=== PATIENT | female | born 1975 | race Caucasian/White ===

== ENCOUNTER 2018-10-14 05:42 | Day surgery (SDC) | payer OTHER, SELFPAY ==
[2018-10-09 17:09] LABS: Hemoglobin 12.7 g/dl (12.0-15.0); Mean Corp Hgb Conc 34.3 g/gl (32-36); Mean Corpuscular Hgb 29.9 pg (27.0-32.0); Mean Corpuscular Volume 87.1 fL (81-99); Mean Platelet Vol. 9.6 fl (6.2-12.0); Platelet Count 216 K/mm3 (150-450); RBC Distribution Width CV 12.8 % (11.6-14.6); Red Blood Count 4.25 M/mm3 (4.2-5.4); White Blood Count 3.8 K/mm3 (4.4-11.0)
[2018-10-09 17:16] LABS: Scan Indicated on CBC? Y/N NO
[2018-10-09 17:21] LABS: Partial Thromboplast Time 29.9 Seconds (24.1-36.2)
[2018-10-09 17:41] LABS: Internal QC Validated? YES +Cl - CLEAR BKGD; Pregnancy, Serum, hCG Quali. NEGATIVE Negative
[2018-10-09 17:43] LABS: Creatinine, Serum 0.79 mg/dL (0.55-1.02); EST Glomerular Filtration Rate 84 mL/min (>60); Est Glom Filt Rate - Afr Amer 102 mL/min (>60)
--- NOTE | 2018-10-13 21:17 | HP.PCM_ITS ---
History and Physical Date of Admission: 10/14/18 Surgical History and Physical Neva Potts, a 43 year old female 2 0 0 0 2, presents for RAVH/LSO/RS on October 14, 2018 at 7:30. -- Submucous Fibroids, Dysmenorrhea, LLQ Pain -- Cyclic LLQ pain which began months ago. Neva claims it started gradually and has been present 2 weeks before menses every months. It is located in the LLQ of the abdomen. Neva characterizes the quality throbbing.; Neva characterizes the quality aching. Severity is moderate and not improving; It is relieved by menses. Additional comments are: had vasectomy.; Additional comments are: u/s shows multiple submucous fibroids and fibroid which protrudes into left adnexa; normal left ovary. MEDICATIONS HISTORY: Patient is also takin. No Meds ALLERGIES: No Known Drug Allergies Infections - Chicken pox Illnesses - none Accidents - None Hospitalizations - Childbirth and see surgery Review of Systems: GENERAL - Denies fever, or chills SKIN - Denies skin changes EYES - Denies visual changes EARS - Denies difficulty hearing NOSE - Denies nasal congestion or bleeding MOUTH - Denies sore throat or difficulty swallowing NECK - Denies pain or swelling RESPIRATORY - Denies shortness of breath or wheezing CARDIOVASCULAR - Denies palpitations or chest pain GASTROINTESTINAL - Denies nausea, vomiting, diarrhea, constipation GENITOURINARY - Denies dysuria, frequency of urination, incontinence of urine MUSCULOSKELETAL - Denies joint or muscle pain NEUROLOGICAL - Denies localized numbness or weakness PSYCHIATRIC - Denies depression or anxiety ENDOCRINE - Denies heat or cold intolerance, weight loss or gain HEMATO-IMMUNOLOGIC - Denies excessive bleeding with cuts SOCIAL HISTORY: Alcohol Use - drinks occasionally Smoking - denies smoking Diet - balanced Diet Lifestyle - moderate stress lifestyle Exercise - regular Seat Belt Use - always Employer - [employer] Job Description - business office manager Illicit Drug Use - denies use of street drugs Sexual Activity - single sexual partner Hours Worked - 40 hours per week Spouse-Sig Other Name - Cal Bandar- boyfriend not FOB Children Name(s) - Andreas Control - Vasectomy FAMILY HISTORY: Non-contributory MENSTRUAL HISTORY: LMP Known?- Definite Amount/Duration - 2 days, Regularity - Regular, Frequency - monthly days, LMP - 09/26/18 PAST PREGNANCIES: Total Pregnancies - 2; Full Term Pregnancies - 2; Premature - 0; Abortions, Induced - 0; Abortions, Spontaneous - 0; Ectopics - 0; Multiple Births - 0; Living Children - 2 SURGICAL HISTORY: 1. Gallbladder removal 2015 PHYSICAL EXAM BP- 136/90 Sitting, Right arm, regular cuff Height- 63.0 inch CONSTITUTIONAL - NAD, well nourished, and well developed SKIN - No rash, lesions, or ulcers HEENT - Normocephalic, PERRLA, EOMI NECK - No nodes, no nuchal rigidity and thyroid normal size and texture LYMPH NODES - Palpation of lymph nodes in neck and groins within normal limits LUNGS - CTA x2 without wheezes, crackles or rales CARDIAC - Regular rate and rhythm without rubs, murmurs, or gallops BREAST - No dominant masses, no tenderness, no axillary adenopathy, no nipple discharge, no skin changes ABDOMEN - Without hepatosplenomegaly, distention, masses, rebound, or guarding; normal bowel sounds; no hernias EXTREMITIES - No edema or calf tenderness NEUROLOGICAL - Cranial nerves II-XII grossly intact PSYCHIATRIC - A and O to time, place, person, mood and affect DETAILED PELVIC EXAM External Genitial Vagina - non-tender without lesions Urethra/Urethral Meatus - non-tender Bladder - non-tender Vagina - vaginal golden are pink and moist without loss of rugae and no evidence of atropy Cervix - without cervical motion tenderness and has normal size and features without evident lesions Uterus - 5-6 cm in size, mobile and nontender Adnexa - clear without massess or tenderness ASSESSMENT/PLAN: 1. Abdominal Pain,LLQ, Dysmenorrhea and Submucous Leiomyoma Of Uterus Uncertain if pain due to fibroids protruding into left adnexa or undiagnosed endometriosis; dysmenorrhea/ cramping likely due to submucous fibroids. Discussed options for treatment including proceeding with RAVH/LSO/RS or Dx L/S with possible LSO/RS and pt desires the hysterectomy. Her pain is severe enough that she insists something must be done. Discussed RBAs and all questions answered.
[2018-10-14] VITALS (11 sets, daily range): BP systolic 98–134; BP diastolic 64–78; PULSE 66–85; RESP 16–18; TEMP 36.3–37.1; O2SAT 94–100; BMI 23.1; BMI 24.0
[2018-10-14 06:15] LABS: Internal QC Validated? YES +Cl - CLEAR BKGD; Pregnancy, Urine Negative Negative
--- NOTE | 2018-10-14 07:30 | HYST_PTH ---
PATIENT: MIO MORRIS LOC: [facility] [place] U#:[id number] AGE/SX: 43/F ROOM: RE10/14/[address]: Dr. Prabhakar Padgett MD : [id number] BED: DIS: 10/15/2018 SPEC #: [id number] RECD: 10/14/18 13:07 STATUS: BRIANA MARLO #: [id number] CECIL: 10/14/18 07:[address]: Prabhakar Padgett DEPT: SURGICAL PATHOLOGY RECD BY: Yousif Waldron ENTERED: 10/14/18 13:27 SP TYPE: HYSTERECT OTHR DR: Dr. Eddie Higgins MD Tissues: Uterus, NOS Procedures: Surgery Specimen Level V HEADER OPERATION: Robotic assisted vaginal hysterectomy, left salpingo-oophorectomy PRE-OP DIAGNOSIS: Submucous fibroids, left lower quadrant pain, menorrhagia TISSUE SUBMITTED: Uterus, cervix, bilateral fallopian tubes, left ovary MICROSCOPIC DIAGNOSIS Uterus, hysterectomy: Cervix - squamous metaplasia and minimal chronic inflammation. Endometrium - secretory endometrium. Myometrium - leiomyomas. Right fallopian tube - benign paratubal cysts. Left fallopian tube - benign paratubal cyst and focal endometriosis. Left ovary - follicular cyst, corpus luteal cysts and corpora albicantia. AM:heather 10/15/18 COMMENT Case has been reviewed in consultation with Dr. Jacobo who concurs with the above diagnosis. IDC:ZOLTAN MICROSCOPIC DESCRIPTION Slides are reviewed. GROSS DESCRIPTION Received in fixative is one container labeled with the patient's name and designated uterus. The specimen consists of a uterus with attached cervix, right and left fallopian tubes and left ovary. The uterus with cervix measures 11 x 8 x 6.5 cm and weighs 102 gm. The ectocervix is grossly unremarkable. The endocervical canal measures 3.3 cm in length and is grossly unremarkable. The elongated endometrial cavity measures 5 x 3 cm. The reddish-martinez, velvety endometrium measures up to 0.2 cm in thickness. The myometrium measures 2 cm in average thickness and is distorted by multiple rubbery nodules ranging in size from 0.5 to 5.8 cm in greatest dimension. The nodules are intramural and subserosal in location. The right fallopian tube measures 7 cm in length and 1 cm in greatest diameter. The soft tissue adjacent to the fallopian tube contains two smooth glistening cysts containing clear fluid. The cysts range in size from 1 to 1.3 cm in greatest dimension. The fimbriated end has a normal villous appearance. The left fallopian tube is similar in appearance measuring 6 cm in length and 1 cm in average diameter. A smooth glistening paratubal cyst is present measuring 3 cm and containing clear fluid. The smooth, glistening pink-martinez ovary measures 2.8 x 2 x 2 cm. Serial sections reveal small cysts ranging in size from 0.2 to 0.5 cm and containing clear fluid. Electric Wirer sections are submitted in 12 cassettes as follows: 1 - anterior cervix, 2 - posterior cervix, 3 & 4 - anterior uterine wall, 5 & 6 - posterior uterine wall, 7 - largest myometrial mass, 8 - smaller myometrial masses, 9 - right fallopian tube and paratubal cysts, 10 - left fallopian tube, 11 - left paratubal cyst, 12 - left ovary. / AM:heather 10/14/18 TC:5 CPT: 12377
--- NOTE | 2018-10-14 07:35 | PCM.OPRPT ---
Report of Operation Date of Procedure: 10/14/18 Pre-Operative Diagnosis: Submucous Fibroids, Left Lower Quadrant Pain, Menorrhagia Post-Operative Diagnosis: Submucous Fibroids, Left Lower Quadrant Pain, Menorrhagia, Dense Adhesions, Endometriosis Surgery/Procedure Performed:: Robotic Assisted Vaginal Hysterectomy, Left Salpingo-Oophrectomy, Right Salpingectomy, Lysis of Adhesions Description of Surgical Findings:: 10 cm fibroid uterus with dense adhesions of the uterus to the anterior abdominal wall, dense adhesions of the omentum to the anterior abdominal wall, severe endometriosis. Normal-appearing right ovary. solutions specialist: Favian Pedroza Type of Anesthesia:: General - Endotracheal Anesthesiologist: Rony Davenport Specimen's removed: Uterus, left tube and ovary, right tube Drains: Craig to straight drain Estimated Blood Loss (mL): Minimal Fluids Replaced: Crystalloid Description of Procedure: Surgeon: Prabhakar Padgett MD, FACOG Indication: This is a 43 year old patient who has been having problems with chronic left lower quadrant pain and menorrhagia. Ultrasound shows submucous fibroids present. Conservative measures have not been helpful. The patient has been counseled regarding the risks, benefits and alternatives of this procedure including the possibility of bleeding, infection, and injury to surrounding structures such as bowel bladder and all questions were answered. She understands that if BSO is needed that she will need to be on HRT for an indefinite period of time. Procedure: Pt taken to the operating room where after induction of general anesthesia the patient was prepped and draped in the usual sterile fashion and placed on a non-slip Huggy-u-vac device. Trendendelenburg test was satisfactory. Bladder was drained of urine with a Craig catheter which was left in place. Anterior cervix was grasped and cervix was dilated to about 3-4 mm. Uterus sounded to 9 cms. 0-Vicryl suture was placed at the 3:00 and 9:00 position of the cervix. A medium uterine manipulation device device was then placed in the uterus to allow uterine manipulation during the surgery and attention was turned to the laparoscopic portion of the procedure. Ropivocaine 0.5% was injected approximately 2-3 cm superior to the umbilicus and an 8 mm robotic camera port was introduced directly with intraperitoneal placement confirmed with insufflation. 8 mm robotic side ports were introduced under direct visualization approximately 11 cm lateral and 2 cm inferior to the umbilical port. A 5 mm left upper quadrant port was introduced and airseal insufflation with CO2 was started. The above findings were noted. Robot was docked without difficulty and attention turned to the robotic portion of the procedure. Approximately 30 cc of Ropivicaine was used. Adhesions of the omentum to the anterior abdominal wall were noted and taken down with cautery and sharp dissection. The uterus was densely adhered to the anterior abdominal wall and adhesions were taken down again with cautery and sharp dissection. The left infundibulocal ligament and right mesosalpinx were ligated with 35 singh bipolar coagulation to the level of the round ligament which were enveloped with dense adhesions. The posterior aspect of the cervix was identified and then opened for about 1 cm using 25 watt monopolar cautery identifying the uterine manipulating device which had been placed vaginally. Bladder flap was carefully developed using monopolar cautery and sharp dissection. Progressive bites were then ligated on each side of the cervix with 35 singh bipolar cautery to the uterine arteries. The anterior vaginal mucosa was then entered and cervix circumscribed with monopolar cautery. Uterus and attached left ovary and tubes were then removed through the vagina. Vaginal cuff was closed first with 0-Vicryl Dayna stitches placed at each angle followed by closure of the mid-cuff with 0-Monocryl V-lock suture in two layers. Pelvis was copiously irrigated with saline and the right and left ureters were noted to peristalse. Urine remained clear throughout the surgery. Robot was undocked and trocars were removed with as much gas as possible. Incisions were closed with 4-0 Monocryl subcuticular sutures and incisions covered with steri-strips. The patient tolerated the procedure well and was taken to the recovery room in satisfactory condition. Sponge, instruments and needle counts were all correct. There were no apparent complications of the surgery. Cefotan 2 gms IV was given prior to the procedure. Estimated Blood Loss: Minimal Specimen to Pathology: Uterus and bilateral tubes and left ovary Grafts/Implants Used: None - Complications None - Admit VTE Documentation VTE Present on Admission: Yes VTE Mechan Device Prophylaxis: Knee High GREGG Hose VTE Pharm Prophylaxis ordered?: Yes
--- NOTE | 2018-10-14 07:40 | DCINST_ITS ---
Discharge Diet: No Restrictions Discharge Activity: Return to Normal Activity, May Not Drive - while taking narcotic pain medications., May Shower May resume sexual activity in: 6-8 weeks Call your doctor if your incision/area has: Continuous Slow Oozing, Sudden Increased Bleeding, Increased Pain/ Swelling, Increased Redness, Foul Smelling Discharge Call your doctor if you observe: Fever of 101 or Higher, Inability to urinate, Inability to have a bowel movement, Using more than one pad per hour Allergies/Adverse Reactions: Allergies No Known Allergies Allergy (Verified 10/07/18 13:11) Medications to take at Discharge Docusate Sodium [Colace] 100 mg PO BID PRN PRN #60 cap 10/14/18 Oxycodone [Oxyir] 5 mg PO Q6H PRN PRN 7 Days #20 tab 10/14/18 The following prescriptions were given: Oxycodone [Oxyir] 5 mg PO Q6H PRN PRN 7 Days #20 tab PRN Reason: Severe Pain () Docusate Sodium [Colace] 100 mg PO BID PRN PRN #60 cap PRN Reason: Constipation Primary Care Physician: Eddie Higgins MD [Primary Care Provider] - Test Results: Test results from this visit will be discussed in further detail at your follow- up appointment, if applicable. Please Follow Up With: Prabhakar Padgett MD When: 2 to 3 weeks
[2018-10-14] MEDS: Ropivacaine 0.5% 30 ML Vial (08:30)
[2018-10-14] MEDS: oxyCODONE 5 MG Tablet PO (12:52)
[2018-10-14] MEDS: Dextrose 5%-Lactated Ringers 1,000 ML 150 ML IV (12:54)
[2018-10-14] MEDS: Ketorolac 30 MG/ML Syringe IV ×2 (16:20→20:41)
[2018-10-14] MEDS: Enoxaparin 30 MG/0.3 ML Syringe SC (16:22)
[2018-10-14] MEDS: 0.9% NaCl Peripheral Flush Adult/Peds IV (20:41)
[2018-10-15 04:15] VITALS: BP 109/55; PULSE 74; RESP 16; TEMP 37; O2SAT 97
[2018-10-15] MEDS: Ketorolac 10 MG Tablet PO ×2 (04:15→09:30)
[2018-10-15 06:48] LABS: Hematocrit 28.7 % (37-47); Mean Corp Hgb Conc 34.8 g/gl (32-36); Mean Corpuscular Hgb 30.3 pg (27.0-32.0); Mean Platelet Vol. 10.5 fl (6.2-12.0); Platelet Count 195 K/mm3 (150-450); RBC Distribution Width CV 12.6 % (11.6-14.6); RBC Distribution Width SD 38.2 fl (35.1-43.9); White Blood Count 9.8 K/mm3 (4.4-11.0)
[2018-10-15 06:49] LABS: Scan Indicated on CBC? Y/N NO
[2018-10-15 07:14] LABS: Creatinine, Serum 0.73 mg/dL (0.55-1.02); EST Glomerular Filtration Rate 93 mL/min (>60); Est Glom Filt Rate - Afr Amer 112 mL/min (>60); Estimated Creatinine Clearance 83.05 ml/min
[2018-10-15 07:46] VITALS: O2SAT 98
--- NOTE | 2018-10-15 08:11 | PCM.PN.OB ---
Subjective: Patient without complaints. Pain well controlled. Left lower quadrant pain noted prior to surgery is gone. Able to void on own. No vaginal bleeding. - Physical Exam Vital Signs Temp Pulse Resp BP Pulse Ox 98.6 F 74 16 109/55 L 98 10/15/18 04:15 10/15/18 04:15 10/15/18 04:15 10/15/18 04:15 10/15/18 07:46 Oxygen Delivery Method Room Air Weight: 135 lb 9.6 oz Body Mass Index (BMI) 24.0 Intake and Output for Last 24 Hours 10/13/18 10/14/18 10/15/18 23:59 23:59 23:59 Intake Total 3920 / 3920 500 / 500 Output Total 1970 / 2370 900 / 900 Balance 1950 / 1550 -400 / -400 Laboratory Tests Past 24 Hrs 10/15/18 10/15/18 06:26 06:26 WBC 9.8 RBC 3.30 L Hgb 10.0 L Hct 28.7 L MCV 87.0 MCH 30.3 MCHC 34.8 RDW 12.6 RDW Differential 38.2 Plt Count 195 MPV 10.5 Creatinine 0.73 Estim Creat Clear Calc 83.05 Est GFR (MDRD) Af Amer 112 Est GFR (MDRD) Non-Af 93 Wounds are clean, dry, intact. Good urine output. Hemoglobin and creatinine okay. Medical Necessity - Tobacco Use Smoking Status: Former smoker Assessment/Plan All Active Problems (Last Reviewed 08/23/18 @ 15:11 by Sandy Morton) Sinusitis, acute (Resolved) Doing well postoperative day #1 status post robotic assisted vaginal hysterectomy, left salpingo-oophorectomy, right salpingectomy. Will release to home with routine instructions.
[2018-10-15 09:46] VITALS: BP 104/67; PULSE 72; RESP 14; TEMP 36.8; O2SAT 97
== END 2018-10-15 09:50 | disposition home or self-care (01) ==
LOC: SDC 05:47 → AC 05:47 → MS3 10-15 10:16
PROVIDERS: Anesthesiology; Family Provider Family Medicine; PCP Family Medicine; Referring Provider Obstetrics & Gynecology; Visit Provider Obstetrics & Gynecology
PROC: 0UT94ZZ Resection of Uterus, Percutaneous Endoscopic Approach (ICD-10-PCS; CPT 49329; principal; 2018-10-14 07:10)
DX: D25.0 Submucous leiomyoma of uterus (principal); N87.9 Dysplasia of cervix uteri, unspecified; N72 Inflammatory disease of cervix uteri; N83.8 Other noninflammatory disorders of ovary, fallopian tube and broad ligament; N80.2 Endometriosis of fallopian tube; N83.02 Follicular cyst of left ovary; N83.292 Other ovarian cyst, left side; N83.12 Corpus luteum cyst of left ovary; Z87.891 Personal history of nicotine dependence
CPT/HCPCS: 00840; 49329; 58552; 36415; 81025; 82565; 84703; 85027; 85610; 85730; 86850; 86900; 88307; J7120; A4216; J2405

== ENCOUNTER 2019-06-19 18:54 | Emergency (ER) | payer BC, SELFPAY ==
[2018-10-14 12:39] VITALS: BMI 24.0
[2019-06-19 18:55] VITALS: BP 135/99; PULSE 101; RESP 16; TEMP 37.2; O2SAT 99; BMI 25.9
--- NOTE | 2019-06-19 19:06 | CT_ITS ---
STUDY: CT BRAIN WITHOUT CONTRAST REASON FOR EXAM: Female, 44 years old. 2 day headache RADIATION DOSAGE (If Supplied By Facility): CTDIvol = ( 44.99 ) mGy, DLP = ( 728.62 ) mGycm TECHNIQUE: Transaxial CT imaging of the brain was performed without administration of intravenous contrast material. Individualized dose optimization techniques were used for this CT. COMPARISON: None. FINDINGS: Normal soft tissue structures. Normal calvarium. No hydrocephalus or midline shift is seen. Normal size ventricles and extra-axial spaces for the patient''s age. Normal white matter tracts of the cerebral hemispheres. Normal basal ganglia and thalami. Normal brainstem. Normal cerebellum. There is no intracranial hemorrhage. There are no findings of an acute ischemic infarction. Normal visualized paranasal sinuses. CT/Brain/Head without Contrast IMPRESSION: No demonstrated acute or significant intracranial process. Electronically Signed: Garry Gamez MD at 20:06 EST , Service support ,
--- NOTE | 2019-06-19 19:07 | ED.VIS.GEN ---
History of Present Illness Chief Complaint: Headache Informant: Patient Onset: Yesterday Context: Gradual Onset Timing: Continuous Current Severity: Moderate Maximum Severity: Severe Narrative: The patient presents to the emergency department headache. She states that started yesterday. When she woke up, she had a dull pressure behind her eyes. She states throughout the day, it worsened. She is been nauseated without vomiting. She states she is taken ibuprofen and Excedrin with little improvement. She does have a history of headache, but is never been diagnosed with migraines. She states that she is never had such a persistent headache. She denies any visual change. She denies any weakness, numbness, or other neurologic symptoms. She is had no trauma. She is otherwise been in her normal state of health. There is no family history of aneurysm or polycystic kidney disease. Prior similar symptoms: No Recent Illness/Hospitalization: No Past Medical History - Allergies and Home Meds Allergies/Adverse Reactions: Allergies No Known Allergies Allergy (Verified 06/19/19 18:59) Primary Care Physician: Eddie Higgins MD [Primary Care Provider] - Prior records reviewed: Yes Past Medical History: None Surgical History: hysterectomy Smoking Status: Current some day smoker Review of Systems General: Denies: Chills, Fever, Sweats Eyes: Denies: Visual changes - bilaterally, Diplopia ENT: Denies: Rhinorrhea, Sore throat Cardiovascular: Denies: Chest pain, Palpitations Respiratory: Denies: Dyspnea, Cough, Dyspnea on exertion Gastrointestinal: Denies: Abdominal pain, Nausea, Vomiting, Diarrhea, Melena, Hematochezia Genitourinary: Denies: Dysuria, Hematuria, Frequency Musculoskeletal: Denies: Back pain, Extremity Pain Skin: Denies: Rash, Wounds Neurological: Reports: Headache. Denies: Weakness, Numbness Physical Exam Vital Signs/Narrative: Vital Signs Temp Pulse Resp BP Pulse Ox 06/19/19 18:55 99.0 F 101 H 16 135/99 H 99 Inital Vital Signs reviewed: Yes General: Well nourished, Well developed, No Acute Distress Head: Normocephalic, Atraumatic Eyes: Perrl, EOMI ENT: Moist mucous membranes, No rhinorrhea Neck: Supple, Nontender Cardiovascular: Regular rate, Regular rhythm, No murmurs Respiratory: No distress, CTA bilaterally, Chest nontender Abdomen: Soft, Nontender, Nondistended, Normal bowel sounds Back: Nontender, Normal Inspection Extremities: Nontender, No edema Skin: Normal color, No rash Neurological: Alert, Oriented x3, Cranial nerves II-XII grossly intact, Normal Strength, Normal Sensation Psychological: Normal affect, Normal Mood Diagnostic/Tx/Re-eval Clinical Impression(s) from Imaging Studies Brain CT 06/19/19 19:06 IMPRESSION: No demonstrated acute or significant intracranial process. Electronically Signed: Garry Gamez MD at 20:06 EST , Service support , - Medical Decision Making The patient presents to the emergency department with a dull progressive headache. It has not responded to Motrin or Excedrin. She is not meningitic or encephalopathic. She has no nuchal rigidity. She has no photophobia. There are some components that seem consistent with migraine and some that seem more consistent with tension. She is been afebrile. However, given the history that she is not had a headache like this in some time, I did obtain a head CT. This was unremarkable for acute process. The patient was treated with migraine abortive medication and was feeling markedly improved. On reevaluation, she is resting comfortably. Patient be given a dose of Decadron to prevent rebound headache. At this point, I do feel that she is safe for outpatient follow-up. Impression 1. Acute headache ED Disposition - Plan for ED Patient: Instructions: HEADACHE, Unspecified Prescriptions: Acetaminophen/Butalbital/Caffe [Fioricet] 1 tab PO Q4H PRN PRN #20 tab PRN Reason: Headache Prescription Printed Referrals: Eddie Higgins MD [Primary Care Provider] -
[2019-06-19 19:17] VITALS: RESP 16
[2019-06-19] MEDS: DiphenhydrAMINE 50 MG/ML Syringe IV (19:21)
[2019-06-19] MEDS: 0.9% Normal Saline 1,000 ML 999 ML IV (19:21)
[2019-06-19] MEDS: proCHLORPERazine 10 MG/2 ML Vial IV (19:23)
[2019-06-19] MEDS: Ketorolac 30 MG/ML Syringe IV (19:24)
[2019-06-19] MEDS: dexAMETHasone 10 MG/ML Vial IV (20:18)
[2019-06-19 20:19] VITALS: RESP 16
== END 2019-06-19 20:23 | disposition home or self-care (01) ==
LOC: ED 19:13
PROVIDERS: Emergency Provider Emergency Medicine; PCP Family Medicine
DX: R51 Headache (principal); F17.200 Nicotine dependence, unspecified, uncomplicated
CPT/HCPCS: 70450; 96361; 96374; 96375; 99283; J7030; A4216